=== PATIENT | male | born 1975 | race Caucasian/White ===

== ENCOUNTER 2017-09-02 23:54 | Emergency (ER) | payer OTHER ==
[~2017-09-02] VITALS: Ht 190.5 cm; Wt 122.5 kg
[~2017-09-02 23:54] MED LIST: ADVIL200 M1 PO; CLINDAMYCIN HC300 MG PO; IBUPROFEN600 MG PO; KEFLEX500 MG PO; NAPROSYN500 MG PO; NORCO 5-325 TA1 EACH PO; ZITHROMAX250 MG PO
[2017-09-03] MEDS ORDERED: PREDNISONE20 MG PO (01:57)
[2017-09-03] MEDS ORDERED: INDOMETHACIN50 MG PO (01:57)
== END 2017-09-03 02:11 | disposition home or self-care (01) ==
LOC: ED 23:54
DX: M10.9 Gout, unspecified (principal); F17.200 Nicotine dependence, unspecified, uncomplicated; Z88.0 Allergy status to penicillin
CPT/HCPCS: 73110; 80053; 84550; 85025; 85651; 99283; J7512

== ENCOUNTER 2018-12-02 15:46 | Emergency (ER) | payer OTHER ==
[~2018-12-02] VITALS: Ht 190.5 cm; Wt 122.5 kg
[~2018-12-02 15:46] MED LIST changes: +INDOMETHACIN50 MG PO; +PREDNISONE20 MG PO
== END 2018-12-02 17:50 | disposition left against medical advice (07) ==
LOC: ED 15:46
DX: Z53.21 Procedure and treatment not carried out due to patient leaving prior to being seen by health care provider (principal)

== ENCOUNTER 2020-03-31 20:50 | Emergency (ER) | payer OTHER ==
[~2020-03-31] VITALS: Ht 190.5 cm; Wt 122.5 kg
== END 2020-03-31 22:42 | disposition home or self-care (01) ==
LOC: ED 20:50
DX: S20.211A Contusion of right front wall of thorax, initial encounter (principal); J45.909 Unspecified asthma, uncomplicated; F17.200 Nicotine dependence, unspecified, uncomplicated; Z88.0 Allergy status to penicillin; V47.6XXA Car passenger injured in collision with fixed or stationary object in traffic accident, initial encounter
CPT/HCPCS: 71046; 73502; 99284-25

== ENCOUNTER 2021-11-29 14:14 | Emergency (ER) | payer OTHER ==
[~2021-11-29] VITALS: Ht 190.5 cm; Wt 128.0 kg
== END 2021-11-29 17:09 | disposition home or self-care (01) ==
LOC: ED 14:14
DX: U07.1 COVID-19 (principal); F43.10 Post-traumatic stress disorder, unspecified; F17.200 Nicotine dependence, unspecified, uncomplicated; Z88.0 Allergy status to penicillin
CPT/HCPCS: 36415; 71045; 80048; 85025; 87502; 99285-25; C9803; U0003

== ENCOUNTER 2022-05-06 22:52 | Emergency (ER) | payer OTHER ==
[~2022-05-06] VITALS: Ht 190.5 cm; Wt 127.9 kg
--- NOTE | 2022-05-07 18:56 | EKG ---
[facility] [address] [facility] [place] [address] Signed Sinus bradycardia Otherwise normal ECG No previous ECGs available Confirmed by NANETTE DUGGAN MD ([id number] on 05/07/2022 6:56:45 PM Electronically Signed By: NANETTE DUGGAN MD 05/07/22 1856 PATIENT NAME: ANDREI RAIN Electrocardiogram DATE OF : 71 PHYSICIAN: NANETTE DUGGAN MD REPORT #: [id number] REPORT IS CONFIDENTIAL AND NOT TO BE RELEASED WITHOUT AUTHORIZATION
== END 2022-05-07 00:08 | disposition home or self-care (01) ==
LOC: ED 22:52
DX: J98.01 Acute bronchospasm (principal); J44.9 Chronic obstructive pulmonary disease, unspecified; F17.200 Nicotine dependence, unspecified, uncomplicated; Z20.822 Contact with and (suspected) exposure to COVID-19; Z88.0 Allergy status to penicillin; Z88.1 Allergy status to other antibiotic agents
CPT/HCPCS: 36415; 71045; 80053; 83880; 84484; 85025; 87502; 87880; 93005; 93010; 94640; 96374; 99285-25; C9803; J2930; U0003

== ENCOUNTER 2022-07-25 12:33 | Emergency (ER) | payer OTHER ==
[~2022-07-25] VITALS: Ht 190.5 cm; Wt 128.0 kg
[2022-07-25] MEDS ORDERED: HYDROCODON-ACE1 EA10 PO (16:59)
[2022-07-25] MEDS ORDERED: CLEOCIN HCL300 MG PO (16:59)
[2022-07-25 17:27] VITALS: BP 147/93
== END 2022-07-25 17:29 | disposition home or self-care (01) ==
LOC: ED 12:33
DX: J36 Peritonsillar abscess (principal); F43.10 Post-traumatic stress disorder, unspecified; F17.200 Nicotine dependence, unspecified, uncomplicated; Z88.0 Allergy status to penicillin
CPT/HCPCS: 36415; 42700; 70491; 80053; 85025; 99284-25; J1100; J1170; J1885; J3490; J7030; Q9967

== ENCOUNTER 2023-04-05 14:05 | Emergency (ER) | payer OTHER ==
[~2023-04-05] VITALS: Ht 190.5 cm; Wt 121.7 kg
[~2023-04-05 14:05] MED LIST changes: +CLEOCIN HCL300 MG PO; +HYDROCODON-ACE1 EA10 PO
[2023-04-05 15:04] LABS: INFLUENZA B NAA NEGATIVE (NEGATIVE); RESPIRATORY SYNCYTIAL VIR NAA NEGATIVE (NEGATIVE)
[2023-04-05] MEDS ORDERED: ACETAMINOPHEN 500 MG TAB PO ONE (17:15)
[2023-04-05] MEDS ORDERED: IBUPROFEN 600 MG TAB PO ONE (17:15)
[2023-04-05] MEDS ORDERED: ONDANSETRON 4 MG TAB ODT SL ONE (17:15)
[2023-04-05] MEDS ORDERED: ONDANSETRON ODT8 MG PO (17:26)
[2023-04-05] MEDS ORDERED: VENTOLIN HFA18 GM INH (17:26)
[2023-04-05] MEDS ORDERED: INHALER, ASSIST DEVICES 1 EACH SPACER MISC ONE (17:30)
[2023-04-05] MEDS ORDERED: ALBUTEROL SULFATE 8 GM HOME.PACK INH ONE (17:30)
[2023-04-05 17:42] VITALS: BP 150/89
== END 2023-04-05 17:42 | disposition home or self-care (01) ==
LOC: ED 14:05
PROVIDERS: Emergency Medicine
DX: J10.1 Influenza due to other identified influenza virus with other respiratory manifestations (principal); J45.909 Unspecified asthma, uncomplicated; F17.200 Nicotine dependence, unspecified, uncomplicated; Z88.0 Allergy status to penicillin
CPT/HCPCS: 87502; 94640; 94664; 99406; A9270; U0002